=== PATIENT | male | born 1940 | race Caucasian/White ===

== ENCOUNTER 2019-04-21 14:31 | Emergency (ER) | payer MEDICARE, BC ==
[2019-04-21 14:56] VITALS: BP 121/68
--- NOTE | 2019-04-21 15:45 | UC ---
Respiratory Complaint HPI - HPI Summary HPI Summary: 78 yo male with 5 day hx of cough/congestion/bilater ear ache feverish shaking chills has COPD severe myalgias - History of Current Complaint Chief Complaint: UCGeneralIllness Stated Complaint: SORE THROAT Time Seen by Provider: 04/21/19 15:25 Hx Obtained From: Patient Onset/Duration: Gradual Onset, Lasting Days - 5 Severity Initially: Mild Severity Currently: Moderate Pain Intensity: 0 Pain Scale Used: 0-10 Numeric Character: Cough: Nonproductive Aggravating Factors: Nothing Alleviating Factors: Bronchodilator Associated Signs And Symptoms: Positive: Fever - bora, Chills, Nasal Congestion - Allergies/Home Medications Allergies/Adverse Reactions: Allergies Allergy/AdvReac Type Severity Reaction Status Date / Time Penicillins Allergy Hives Verified 04/21/19 14:49 Home Medications: Home Medications Diphenhydra/Phenyleph/Acetamin [Theraflu Expressmax Cold Nt Lq] 1 dose PO ONCE 04/21/19 [History Confirmed 04/21/19] PMH/Surg Hx/FS Hx/Imm Hx Previously Healthy: Yes Respiratory History: COPD, Pneumonia GI/ History: Other Other GI/ History: 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 - Surgical History Surgical History: Yes Surgery Procedure, Year, and Place: bowel resection 1995 - Family History Known Family History: Positive: Hypertension - Social History Alcohol Use: None Substance Use Type: None Smoking Status (MU): Former Smoker When Did the Patient Quit Smoking/Using Tobacco: 1988 Review of Systems All Other Systems Reviewed And Are Negative: Yes Constitutional: Positive: Fever - bora, Chills, Fatigue Skin: Positive: Negative Eyes: Positive: Negative ENT: Positive: Nasal Discharge, Sinus Congestion, Sinus Pain/Tenderness Respiratory: Positive: Cough Cardiovascular: Positive: Negative Gastrointestinal: Positive: Negative Genitourinary: Positive: Negative Motor: Positive: Negative Neurovascular: Positive: Negative Musculoskeletal: Positive: Negative Neurological: Positive: Negative Psychological: Positive: Negative Physical Exam Triage Information Reviewed: Yes Appearance: Well-Appearing, No Pain Distress, Well-Nourished Vital Signs: Initial Vital Signs Temp 98.3 F 04/21/19 14:50 Pulse 85 04/21/19 14:50 Resp 16 04/21/19 14:50 BP 121/68 04/21/19 14:50 Pulse Ox 100 04/21/19 14:50 Vital Signs Reviewed: Yes Eyes: Positive: Conjunctiva Clear ENT: Positive: TM bulging, Uvula midline. Negative: Hearing grossly normal, Nasal congestion, Nasal drainage, Trismus, Muffled voice, Hoarse voice Neck: Positive: Supple, Nontender, No Lymphadenopathy Respiratory: Positive: Lungs clear, Normal breath sounds, No respiratory distress, No accessory muscle use Cardiovascular: Positive: RRR, No Murmur Musculoskeletal: Positive: Strength Intact, ROM Intact Neurological: Positive: Alert Psychological Exam: Normal Skin Exam: Normal Diagnostics - Laboratory Lab Results: influenza negative - Radiology No standard instances Radiology Interpretation Completed By: Radiologist Summary of Radiographic Findings: #. Stigmata of obstructive lung disease. No acute pulmonary or cardiac process evident. Respiratory Course/Dx - Course Course Of Treatment: patient unable to tolerate steroids - Differential Dx/Diagnosis Provider Diagnosis: COPD with acute exacerbation Discharge ED - Sign-Out/Discharge Documenting (check all that apply): Patient Departure All imaging exams completed and their final reports reviewed: Yes - Discharge Plan Condition: Stable Disposition: HOME Prescriptions: DOXYcycline CAP(*) [DOXYcycline 100MG CAP(*)] 100 mg PO BID #14 cap Patient Education Materials: Acute Bronchitis (ED) Referrals: Gamaliel Mohan MD [Primary Care Provider] - 3 Days (recheck in 3-10 days if not better) Additional Instructions: to ER for new or worsening symptoms - Billing Disposition and Condition Condition: STABLE Disposition: Home
[2019-04-21 15:57] LABS: Influenza A Molecular Negative (Negative); Influenza B Molecular Negative (Negative)
== END 2019-04-21 16:27 | disposition home or self-care (01) ==
LOC: UCCORT 14:31
DX: J44.1 Chronic obstructive pulmonary disease with (acute) exacerbation (principal); H92.03 Otalgia, bilateral; R50.9 Fever, unspecified; R53.83 Other fatigue; Z88.0 Allergy status to penicillin; Z87.891 Personal history of nicotine dependence
CPT/HCPCS: 71046; 99202; G0463